=== PATIENT | male | born 1995 | race Caucasian/White ===

== ENCOUNTER 2016-12-20 23:04 | Emergency (ER) | payer MEDICAID ==
[~2016-12-20] VITALS: Ht 175.3 cm; Wt 54.6 kg
[~2016-12-20 23:04] MED LIST: INSU100C5 SQ-INSULIN
[2016-12-20 23:49] LABS: BLOOD UREA NITROGEN 15 mg/dL (7-18)
[2016-12-21 00:21] VITALS: BP 118/81
== END 2016-12-21 00:27 | disposition home or self-care (01) ==
LOC: ED 23:59
DX: R07.89 Other chest pain (principal); E10.65 Type 1 diabetes mellitus with hyperglycemia
CPT/HCPCS: 36415; 80048; 82040; 93005

== ENCOUNTER 2017-02-08 18:33 | Emergency (ER) | payer MEDICAID ==
[~2017-02-08] VITALS: Ht 175.3 cm; Wt 56.2 kg
[2017-02-08 18:34] VITALS: BP 113/74
== END 2017-02-08 20:18 | disposition left against medical advice (07) ==
LOC: ED 20:12
DX: K13.79 Other lesions of oral mucosa (principal); E11.9 Type 2 diabetes mellitus without complications
CPT/HCPCS: 99281

== ENCOUNTER 2017-04-29 22:05 | Emergency (ER) | payer MEDICAID ==
[~2017-04-29] VITALS: Ht 175.3 cm; Wt 53.3 kg
[2017-04-29 23:12] VITALS: BP 121/81
== END 2017-04-29 23:14 | disposition home or self-care (01) ==
LOC: ED 23:08
DX: S60.221A Contusion of right hand, initial encounter (principal); G89.11 Acute pain due to trauma; X58.XXXA Exposure to other specified factors, initial encounter; Y93.89 Activity, other specified; Y92.099 Unspecified place in other non-institutional residence as the place of occurrence of the external cause; Y99.8 Other external cause status
CPT/HCPCS: 29125

== ENCOUNTER 2017-06-21 08:45 | Emergency (ER) | payer MEDICAID ==
[~2017-06-21] VITALS: Ht 175.3 cm; Wt 52.2 kg
[2017-06-21] MEDS ORDERED: DEXAMETHASONE 4 MG/ML, 1ML PO ONE (09:30)
[2017-06-21 10:19] VITALS: BP 112/68
[2017-06-21] MEDS ORDERED: DEXAMETHASONE 4 MG/ML, 5ML ONE (10:40)
== END 2017-06-21 10:51 | disposition home or self-care (01) ==
LOC: ED 09:08
DX: J20.9 Acute bronchitis, unspecified (principal); E11.9 Type 2 diabetes mellitus without complications; Z79.4 Long term (current) use of insulin
CPT/HCPCS: 71020; 82962; 99285; J1100

== ENCOUNTER 2017-11-07 17:23 | Emergency (ER) | payer MEDICAID ==
[~2017-11-07] VITALS: Ht 175.3 cm; Wt 57.5 kg
[2017-11-07] MEDS ORDERED: HYDROcodone/APAP 5/325 TABLET ONE (19:39)
[2017-11-07 19:43] VITALS: BP 115/70
[2017-11-07] MEDS ORDERED: HYDROcodone/APAP 5/325 TABLET PO ONE (20:00)
== END 2017-11-07 20:10 | disposition home or self-care (01) ==
LOC: ED 20:04
DX: K04.7 Periapical abscess without sinus (principal); E11.9 Type 2 diabetes mellitus without complications
CPT/HCPCS: 99283

== ENCOUNTER 2018-03-18 21:09 | Emergency (ER) | payer MEDICAID ==
[~2018-03-18] VITALS: Ht 175.3 cm; Wt 56.9 kg
[~2018-03-18 21:09] MED LIST changes: +INSU100V11 INJ
[2018-03-18 21:11] VITALS: BP 113/71
[2018-03-18] MEDS ORDERED: INSULIN REGULAR 100 UNITS/ML, 3ML VIAL ONE (21:41)
[2018-03-18] MEDS ORDERED: INSULIN REGULAR 100 UNITS/ML, 3ML VIAL SQ-INSULIN SCH (22:00)
== END 2018-03-18 21:59 | disposition home or self-care (01) ==
LOC: ED 21:27
DX: E10.65 Type 1 diabetes mellitus with hyperglycemia (principal)
CPT/HCPCS: 82962; 96372; 96374; 99283

== ENCOUNTER 2018-11-11 20:42 | Emergency (ER) | payer MEDICAID ==
[~2018-11-11] VITALS: Ht 177.8 cm; Wt 57.5 kg
--- NOTE | 2018-11-11 21:00 | NUR ---
HYPERGLYCEMIA/NAUSEA X TODAY. "I LOST MY TEST KIT A WEEK AGO". +POLYURIA/POLYDIPSIA HX OF DM 1 FSBS 503 IN TRIAGE.
[2018-11-11 21:21] LABS: BASOPHILS # (AUTO) 0.01 x10^3/uL (0-0.1); BASOPHILS % (AUTO) 0 % (0-1); EOSINOPHILS # (AUTO) 0.04 x10^3/uL (0-0.4); EOSINOPHILS % (AUTO) 1 % (1-7); LYMPHOCYTES # (AUTO) 1.41 x10^3/uL (1-3.4); LYMPHOCYTES % (AUTO) 34 % (22-44); MD NO; MEAN CORPUSCULAR HEMOGLOBIN 30.6 pg (27.5-34.5); MEAN CORPUSCULAR HGB CONC 34.7 g/dL (33.2-36.2); MEAN CORPUSCULAR VOLUME 88.1 fL (81-97); MEAN PLATELET VOLUME 8.5 fL (7.4-10.4); MONOCYTES # (AUTO) 0.31 x10^3/uL (0.2-0.8); MONOCYTES % (AUTO) 7 % (2-9); NEUTROPHILS % (AUTO) 58 % (42-75); PH, VENOUS 7.369 pH (7.320-7.420); PLATELET COUNT 212 x10^3/uL (130-400); RED BLOOD COUNT 5.14 x10^6/uL (4.38-5.82); RED CELL DISTRIBUTION WIDTH 12.8 % (9.4-14.8)
[2018-11-11] MEDS ORDERED: ONDANSETRON 2MG/ML, 2ML IVPush ONE (21:30)
[2018-11-11] MEDS ORDERED: SODIUM CHLORIDE 0.9% 1,000ML IVBOLUS ONE (21:30)
[2018-11-11 21:31] LABS: ALANINE AMINOTRANSFERASE 20 U/L (12-78); ALBUMIN 4.1 g/dL (3.4-5.0); ANION GAP 5 mmol/L (5-15); CALCIUM 8.5 mg/dL (8.5-10.1); CHLORIDE 102 mmol/L (98-107); CREATININE 1.02 mg/dL (0.7-1.3)
[2018-11-11 21:33] LABS: ALKALINE PHOSPHATASE 76 U/L (45-117); BILIRUBIN,TOTAL 0.9 mg/dL (0.2-1.0)
[2018-11-11 21:42] LABS: ACETONE, SERUM Negative (Negative)
[2018-11-11 21:49] LABS: MICROSCOPIC NOT IND
--- NOTE | 2018-11-11 21:50 | NUR ---
fsbs [phone] was notified
[2018-11-11] MEDS ORDERED: INSULIN REGULAR 100 UNITS/ML, 3ML VIAL ONE (21:52)
--- NOTE | 2018-11-11 21:57 | NUR ---
given 3 units of reg insulin via iv per dr vinson d/t dropping fsbs for now liter of ns was infused
[2018-11-11] MEDS ORDERED: INSULIN REGULAR 100 UNITS/ML, 3ML VIAL IVPush ONE ×3 (22:00)
[2018-11-11 22:02] LABS: CULTURE INDICATED? NO
--- NOTE | 2018-11-11 23:03 | NUR ---
given dc instruction pt understood pt up ambulated
[2018-11-11 23:05] VITALS: BP 113/65
== END 2018-11-11 23:09 | disposition home or self-care (01) ==
LOC: ED 21:43
DX: E10.65 Type 1 diabetes mellitus with hyperglycemia (principal); F17.200 Nicotine dependence, unspecified, uncomplicated; Z79.4 Long term (current) use of insulin
CPT/HCPCS: 36415; 80053; 81003; 82010; 82803; 82962; 85025; 96374; 99283; J7030; 96361

== ENCOUNTER 2019-02-19 20:38 | Emergency (ER) | payer MEDICAID ==
[~2019-02-19] VITALS: Ht 175.3 cm; Wt 56.3 kg
[2019-02-19 20:45] VITALS: BP 101/61
--- NOTE | 2019-02-19 20:54 | NUR ---
SINUS CONGESTION AND COUGHING UP MUCOUS. PT STATES HE IS INSULIN DEPENDENT DIABETIC AND HIS BLOOD SUGAR WAS RUNNING HIGH ONE DAY RECENTLY BUT OTHERWISE OK
== END 2019-02-19 21:41 | disposition home or self-care (01) ==
LOC: ED 21:26
DX: J06.9 Acute upper respiratory infection, unspecified (principal); E11.9 Type 2 diabetes mellitus without complications; Z90.89 Acquired absence of other organs
CPT/HCPCS: 71046; 99283

== ENCOUNTER 2019-11-02 15:47 | Emergency (ER) | payer SELFPAY ==
[~2019-11-02] VITALS: Ht 175.3 cm; Wt 53.9 kg
[2019-11-02 16:02] VITALS: BP 106/74
--- NOTE | 2019-11-02 16:12 | NUR ---
PT HERE FOR WORK NOTE, STATES HE CALLED IN SICK AT WORK THE PAST 3 DAYS AND NEEDS A NOTE.
--- NOTE | 2019-11-02 16:25 | NUR ---
Patient/Caregiver given discharge instructions and they have confirmed that they understand the instructions. Patient ambulatory with steady gait.
== END 2019-11-02 17:00 | disposition home or self-care (01) ==
LOC: ED 16:37
DX: F17.200 Nicotine dependence, unspecified, uncomplicated (principal); R11.2 Nausea with vomiting, unspecified; R19.7 Diarrhea, unspecified; E11.9 Type 2 diabetes mellitus without complications
CPT/HCPCS: 99281